=== PATIENT | male | born 1945 | race Caucasian/White ===

== ENCOUNTER → 2016-08-03 | Outpatient (CLI) | payer MEDICARE, OTHER ==
[2016-08-03 10:36] LABS: ABSOLUTE BASOPHILS # (AUTO) 0.1 10^3/uL (0.0-0.2); ABSOLUTE EOSINOPHILS # (AUTO) 0.3 10^3/uL (0.0-0.6); ABSOLUTE LYMPHOCYTES (AUTO) 0.9 10^3/uL (0.5-4.7); ABSOLUTE MONOCYTES (AUTO) 0.5 10^3/uL (0.1-1.4); ABSOLUTE NEUT (AUTO) 4.4 10^3/uL (1.7-8.2); BASOPHILS % (AUTO) 1.3 % (0-2); HEMATOCRIT 47.5 % (37.9-51.0); HEMOGLOBIN 16.1 g/dL (13.5-17.0); HGB HCT DIFFERENCE 0.8; LYMPHOCYTES % (AUTO) 14.6 % (13-45); MEAN CORPUSCULAR HEMOGLOBIN 33.5 pg (27.0-33.4); MEAN CORPUSCULAR HGB CONC 33.9 g/dL (32.0-36.0); MEAN CORPUSCULAR VOLUME 99 fl (80-97); MONOCYTES % (AUTO) 8.5 % (3-13); SEGMENTED NEUTROPHILS % (AUTO) 70.6 % (42-78); WHITE BLOOD COUNT 6.2 10^3/uL (4.0-10.5)
[2016-08-03 11:01] LABS: ALANINE AMINOTRANSFERASE 24 U/L (21-72); ALBUMIN 4.9 g/dL (3.5-5.0); ALKALINE PHOSPHATASE 59 U/L (38-126); ANION GAP 12 (5-19); ASPARTATE AMINO TRANSFERASE 37 U/L (17-59); BILIRUBIN,DIRECT 0.4 mg/dL (0.0-0.4); BILIRUBIN,TOTAL 1.2 mg/dL (0.2-1.3); BLOOD UREA NITROGEN 26 mg/dL (7-20); CALCIUM 9.5 mg/dL (8.4-10.2); CARBON DIOXIDE 26 mmol/L (22-30); CHLORIDE 103 mmol/L (98-107); CREATININE RESULT 1.03 mg/dL (0.52-1.25); Direct HDL 60 mg/dL (>40); GLUCOSE 100 mg/dL (75-110); POTASSIUM 4.8 mmol/L (3.6-5.0); SODIUM 141.4 mmol/L (137-145); TOTAL PROTEIN 7.9 g/dL (6.3-8.2); TRIGLYCERIDES 105 mg/dL (<150)
[2016-08-03 11:13] LABS: DIRECT LDL 123 mg/dL (<100)
[2016-08-03 11:20] LABS: FREE T3 3.73 pg/mL (2.77-5.27)
[2016-08-03 11:34] LABS: THYROID STIMULATING HORMONE 0.46 uIU/mL (0.47-4.68)
== END ==
LOC: OD 09:31
PROVIDERS: ATTEND Family Medicine
DX: E03.9 Hypothyroidism, unspecified (principal); E78.5 Hyperlipidemia, unspecified; Z13.1 Encounter for screening for diabetes mellitus; Z79.82 Long term (current) use of aspirin; Z79.899 Other long term (current) drug therapy
CPT/HCPCS: 36415; 80053; 80061; 84439; 84443; 84481; 85025

== ENCOUNTER → 2016-09-13 | Outpatient (CLI) | payer MEDICARE, OTHER ==
[2016-09-13 11:47] LABS: ABSOLUTE BASOPHILS # (AUTO) 0.1 10^3/uL (0.0-0.2); ABSOLUTE EOSINOPHILS # (AUTO) 0.4 10^3/uL (0.0-0.6); ABSOLUTE LYMPHOCYTES (AUTO) 1.1 10^3/uL (0.5-4.7); ABSOLUTE MONOCYTES (AUTO) 0.7 10^3/uL (0.1-1.4); ABSOLUTE NEUT (AUTO) 5.7 10^3/uL (1.7-8.2); BASOPHILS % (AUTO) 1.1 % (0-2); HEMATOCRIT 45.1 % (37.9-51.0); HEMOGLOBIN 15.7 g/dL (13.5-17.0); LYMPHOCYTES % (AUTO) 13.8 % (13-45); MEAN CORPUSCULAR HEMOGLOBIN 34.5 pg (27.0-33.4); MEAN CORPUSCULAR HGB CONC 34.7 g/dL (32.0-36.0); MEAN CORPUSCULAR VOLUME 99 fl (80-97); MONOCYTES % (AUTO) 8.7 % (3-13); RED BLOOD COUNT 4.54 10^6/uL (4.35-5.55); RED CELL DISTRIBUTION WIDTH 14.4 % (11.5-14.0); SEGMENTED NEUTROPHILS % (AUTO) 71.4 % (42-78); WHITE BLOOD COUNT 7.9 10^3/uL (4.0-10.5)
[2016-09-13 11:57] LABS: ALANINE AMINOTRANSFERASE 23 U/L (21-72); ALBUMIN 4.6 g/dL (3.5-5.0); ALKALINE PHOSPHATASE 66 U/L (38-126); ANION GAP 10 (5-19); ASPARTATE AMINO TRANSFERASE 34 U/L (17-59); BILIRUBIN,DIRECT 0.3 mg/dL (0.0-0.4); BLOOD UREA NITROGEN 19 mg/dL (7-20); CALCIUM 9.4 mg/dL (8.4-10.2); CARBON DIOXIDE 27 mmol/L (22-30); CHLORIDE 104 mmol/L (98-107); CREATININE RESULT 1.04 mg/dL (0.52-1.25); Direct HDL 39 mg/dL (>40); GLUCOSE 91 mg/dL (75-110); POTASSIUM 5.2 mmol/L (3.6-5.0); SODIUM 141.3 mmol/L (137-145); TOTAL PROTEIN 7.5 g/dL (6.3-8.2); TRIGLYCERIDES 109 mg/dL (<150)
[2016-09-13 12:08] LABS: DIRECT LDL 79 mg/dL (<100)
[2016-09-14 08:22] LABS: PROSTATE SPECIFIC ANTIGEN 1.1 ng/mL (0.0-4.0); PSA % FREE 29.1 % (.); PSA FREE 0.32 ng/mL
== END ==
LOC: OD 10:40
PROVIDERS: ATTEND Urology
DX: N52.8 Other male erectile dysfunction (principal); E29.1 Testicular hypofunction; I10 Essential (primary) hypertension; F41.1 Generalized anxiety disorder; M19.90 Unspecified osteoarthritis, unspecified site
CPT/HCPCS: 36415; 80053; 80061; 84154; 84403; 85025

== ENCOUNTER 2018-06-14 09:00 | Emergency (ER) | payer MEDICARE, OTHER ==
--- NOTE | 2018-06-14 10:05 | ER Document Report ---
ED Fall - General Chief Complaint: Fall Stated Complaint: FALL/RIB PAIN Time Seen by Provider: 06/14/18 09:48 Primary Care Provider: MARGIE TONY PA-C [Primary Care Provider] - Follow up as needed TRAVEL OUTSIDE OF THE [place] IN LAST 30 DAYS: No - HPI Notes: Patient is a 72-year-old male that presents to the emergency department for chief complaint of left-sided rib pain. Patient reports that 2 days ago he stood up from the couch and passed out landing on his left side. A family member was present and denied any head injury. Patient has a history of parkinsonian gait as well as vasovagal syncope. He has been having full syncopal episodes after standing for the last few weeks. He does have an appointment with violent cardiology this coming week to further investigate his syncopal episodes. He denies any prodrome including chest pain or shortness of breath. Patient states that he does get lightheaded but it happens very quickly and he has not had time to lower himself to the ground generally. He has been ambulating with a walker occasionally because of the syncopal episodes. Patient's only complaint today is sharp pain on the left side of his ribs that is worse with movement and breathing. He has been taking ibuprofen which gives him some relief but not a significant amount of relief. He denies fevers cough and congestion. Past Medical History: Orthostatic syncope, parkinsonian gait Past Surgical History: Reviewed in chart Social History: Denies drugs alcohol and tobacco Family History: Reviewed and noncontributory for presenting illness Allergies: Reviewed, see documented allergy list. REVIEW OF SYSTEMS: CONSTITUTIONAL : No fever No chills No diaphoresis No recent illness EENT: No vision changes No congestion No sore throat CARDIOVASCULAR: Syncope No chest pain No palpitations RESPIRATORY: No shortness of breath No cough No difficulty breathing GASTROINTESTINAL: No abdominal pain No nausea No vomiting No diarrhea GENITOURINARY: No dysuria No hematuria No difficulty urinating MUSCULOSKELETAL: No back pain No leg pain No arm pain Left rib pain SKIN: No rashes No lesions LYMPHATIC: No swollen, enlarged glands. NEUROLOGICAL: No lightheadedness No headache No weakness No paresthesias PSYCHIATRIC: No anxiety No depression PHYSICAL EXAMINATION: Vital signs reviewed, nursing noted reviewed. GENERAL: Well-appearing, well-nourished and in no acute distress. HEAD: Atraumatic, normocephalic. EYES: Eyes appear normal, extraocular movements intact, sclera anicteric, conjunctiva are normal. ENT: nares patent, oropharynx clear without exudates. Moist mucous membranes. NECK: Normal range of motion, supple without lymphadenopathy LUNGS: Tenderness to palpation of left anterior ribs 5, 6 and 7 with no flail segments or chest wall crepitus. No overlying left-sided ecchymosis. Right anterior chest wall ecchymosis. Breath sounds clear to auscultation bilaterally and equal. No wheezes rales or rhonchi. HEART: Regular rate and rhythm without murmurs, +2/4 bilateral radial pulses ABDOMEN: Soft, nontender, normoactive bowel sounds. No rebound, guarding, or rigidity. No masses appreciated. EXTREMITIES: Nontender, good range of motion, no pitting or edema. NEUROLOGICAL: No focal neurological deficits. Moves all extremities spontaneously Motor and sensory grossly intact on exam. PSYCH: Normal mood, normal affect. SKIN: Warm, Dry, normal turgor, ecchymosis over anterior right rib cage - Related data Allergies/Adverse Reactions: No Known Allergies Allergy (Verified 06/14/18 09:03) Past Medical History - Social History Smoking Status: Unknown if Ever Smoked Family History: Reviewed & Not Pertinent Patient has suicidal ideation: No Patient has homicidal ideation: No Renal/ Medical History: Denies: Hx Peritoneal Dialysis Physical Exam - Vital signs Vitals: Temp Pulse Resp BP Pulse Ox 97.8 F 78 18 155/79 H 98 06/14/18 09:09 06/14/18 09:09 06/14/18 09:09 06/14/18 09:09 06/14/18 09:09 Course - Re-evaluation Re-evalutation: 06/14/18 10:20 Vitals reviewed. Nursing notes reviewed. Patient is currently hemodynamically stable. He has not had any syncopal episodes in the last 2 days and denies ever having any associated chest pain. He does have tenderness over his left anterior rib cage and x-ray will be obtained to evaluate for underlying fracture. I did offer lab work to further evaluate his syncopal episodes however he has been documented as having significant orthostasis which is consistent with his clinical presentation today. He has an appointment with cardiology as an outpatient and him and his family have declined any further syncopal work-up in the ER today. I feel this is reasonable given their compliance with outpatient management. Patient was given 0.5 mg of [place] for further pain control. 06/14/18 12:11 Patient's x-ray shows nondisplaced left fifth rib fracture. He did tolerate the [place] well but will be given a low dose given his vasovagal syncope and parkinsonian gait. I am concerned pain medicine may cause him to fall more frequently. Patient does not wish to have further work-up of his syncope in the emergency room. He will follow with cardiology to further evaluate his syncopal episodes. He was given incentive spirometer in the emergency room. He was discharged in stable condition. Ribs w/Chest X-Ray 06/14/18 09:48 IMPRESSION: Acute nondisplaced lateral left 5th rib fracture. No pneumothorax - Vital Signs Vital signs: Temp Pulse Resp BP Pulse Ox 97.8 F 78 18 155/79 H 98 06/14/18 09:09 06/14/18 09:09 06/14/18 09:09 06/14/18 09:09 06/14/18 09:09 Discharge - Discharge Clinical Impression: Closed traumatic nondisplaced fracture of rib Condition: Stable Disposition: HOME, SELF-CARE Instructions: Rib Injuries and Fractures ([facility]) Additional Instructions: Please return to the emergency department if you have any worsening, or concern of your symptoms. Please return to the emergency department if you develop chest pain, difficulty breathing, severe abdominal pain, or ongoing vomiting. Please follow-up with your primary care physician in 2-3 days and any other recommended physicians. If prescribed, take all medications as directed. If you have any questions or concerns do not hesitate to return the emergency department for evaluation. Use your incentive spirometer to take 10 deep breaths 2-3 times daily to help prevent pneumonia use the prescribed pain medication very sparingly as it will cause low blood pressure and can cause dizziness or lightheadedness which may lead to more falling Keep your appointment with cardiology to further evaluate your drop in blood pressure and passing out Be sure to stand up very slowly to help prevent passing out, always ambulate with your walker, and lay down immediately if you begin to feel lightheaded . Prescriptions: Hydrocodone/Acetaminophen [[place] 5-325 mg Tablet] 0.5 tab PO Q6 #10 tablet Referrals: MARGIE TONY PA-C [Primary Care Provider] - Follow up in 3-5 days
[2018-06-14] MEDS ORDERED: HYDROCODONE/ACETAMINOPHEN 5-325 MG TABLET PO ONE (10:15)
--- NOTE | 2018-06-14 11:50 | RADIOLOGY REPORT (SQ) ---
EXAM DESCRIPTION: RIBS LEFT W/PA CHEST COMPLETED DATE/TIME: 06/14/2018 10:57 am REASON FOR STUDY: rib trauma COMPARISON: None. TECHNIQUE: Frontal view of the chest and additional views of the left ribs acquired. NUMBER OF VIEWS: Five view. LIMITATIONS: None. FINDINGS: FRONTAL CXR: No pneumothorax. No pleural effusion. No atelectasis or infiltrates. RIBS: Nondisplaced acute lateral 5th rib fracture, better visualized on the oblique views. OTHER: No other significant finding. IMPRESSION: Acute nondisplaced lateral left 5th rib fracture. No pneumothorax COMMENT: SITE OF TRAUMA/COMPLAINT MARKED/STAMP COMPLETED: YES. TECHNICAL DOCUMENTATION: JOB ID: [id number] [employer]- All Rights Reserved Reading location - IP/workstation name: [email or web address]
[2018-06-14 12:35] VITALS: BP 145/75
== END 2018-06-14 12:35 | disposition home or self-care (01) ==
LOC: ER 09:00
DX: S22.32XA Fracture of one rib, left side, initial encounter for closed fracture (principal); W18.39XA Other fall on same level, initial encounter; Y92.009 Unspecified place in unspecified non-institutional (private) residence as the place of occurrence of the external cause
CPT/HCPCS: 99283; 71101; A9270

== ENCOUNTER 2018-09-19 12:38 | Emergency (ER) | payer MEDICARE, OTHER ==
--- NOTE | 2018-09-19 12:59 | ER Document Report ---
ED Medical Screen (RME) - General Chief Complaint: Near Syncope Stated Complaint: SYNCOPE Time Seen by Provider: 09/19/18 12:54 Primary Care Provider: MARGIE TONY PA-C [Primary Care Provider] - Follow up as needed Mode of Arrival: Medic Information source: Patient Notes: Pt c/o near syncopal episode while golfing today. Denies any CP or shortness of breath. Denies any recent illness, states he was feeling fine this am before symptoms started. Patient seems sluggish and is unable to recall the name of his doctor. He also has a subconjunctival hemorrhage to the left eye. He states this is not normal for him. Patient upgraded to STEF 2. Charge nurse made aware. I have greeted and performed a rapid initial assessment of this patient. A comprehensive ED assessment and evaluation of the patient, analysis of test results and completion of the medical decision making process will be conducted by additional ED providers. I have specifically instructed the patient or family members with the patient to immediately return to any nursing staff should anything change in the patient's condition or with their chief complaint. This medical record was dictated with voice recognizing software. There may be grammatical, syntax errors that are unintended. TRAVEL OUTSIDE OF THE [place] IN LAST 30 DAYS: No - Related Data Allergies/Adverse Reactions: No Known Allergies Allergy (Verified 06/14/18 09:03) Past Medical History Renal/ Medical History: Denies: Hx Peritoneal Dialysis Physical Exam - Vital signs Vitals: Resp BP Pulse Ox 20 154/80 H 95 09/19/18 12:43 09/19/18 12:43 09/19/18 12:43 Course - Vital Signs Vital signs: Temp Pulse Resp BP Pulse Ox 97.9 F 73 21 H 156/91 H 97 09/19/18 12:46 09/19/18 12:46 09/19/18 13:01 09/19/18 13:01 09/19/18 13:01 - Laboratory Result Diagrams: 09/19/18 12:06 09/19/18 12:06 Doctor's Discharge - Discharge Referrals: MARGIE TONY PA-C [Primary Care Provider] - Follow up as needed
[2018-09-19 13:07] LABS: ABSOLUTE BASOPHILS # (AUTO) 0.1 10^3/uL (0.0-0.2); ABSOLUTE EOSINOPHILS # (AUTO) 0.2 10^3/uL (0.0-0.6); ABSOLUTE LYMPHOCYTES (AUTO) 0.9 10^3/uL (0.5-4.7); ABSOLUTE MONOCYTES (AUTO) 0.8 10^3/uL (0.1-1.4); ABSOLUTE NEUT (AUTO) 7.3 10^3/uL (1.7-8.2); EOSINOPHILS % (AUTO) 2.2 % (0-6); HEMOGLOBIN 15.8 g/dL (13.5-17.0); LYMPHOCYTES % (AUTO) 9.9 % (13-45); MEAN CORPUSCULAR HEMOGLOBIN 34.5 pg (27.0-33.4); MEAN CORPUSCULAR HGB CONC 34.2 g/dL (32.0-36.0); MEAN CORPUSCULAR VOLUME 101 fl (80-97); MONOCYTES % (AUTO) 8.7 % (3-13); PLATELET COUNT 144 10^3/uL (150-450); RED BLOOD COUNT 4.57 10^6/uL (4.35-5.55); RED CELL DISTRIBUTION WIDTH 14.9 % (11.5-14.0); SEGMENTED NEUTROPHILS % (AUTO) 78.2 % (42-78); TOTAL CELLS COUNTED % (AUTO) 100 %; WHITE BLOOD COUNT 9.4 10^3/uL (4.0-10.5)
[2018-09-19 13:20] LABS: INTERNATIONAL RATION (INR) 1.08
[2018-09-19 13:21] LABS: PARTIAL THROMBOPLASTIN TIME 27.7 SEC (23.5-35.8)
--- NOTE | 2018-09-19 13:23 | RADIOLOGY REPORT (SQ) ---
EXAM DESCRIPTION: CT HEAD WITHOUT COMPLETED DATE/TIME: 09/19/2018 1:12 pm REASON FOR STUDY: sluggish, slow to respond COMPARISON: None. TECHNIQUE: Axial images acquired through the brain without intravenous contrast. Images reviewed wi th bone, brain and subdural windows. Additional sagittal and coronal reconstructions were generated. Images stored on PACS. All CT scanners at this facility use dose modulation, iterative reconstruction, and/or weight based d osing when appropriate to reduce radiation dose to as low as reasonably achievable (ALARA). [facility]: Dose Right [facility]: CareDose [facility]: Dose Right [facility]: Teradose 4D [facility]: Smart Vedantu RADIATION DOSE: CT Rad equipment meets quality standard of care and radiation dose reduction techniq ues were employed. CTDIvol: 53.2 mGy. DLP: 1044 mGy-cm. mGy. LIMITATIONS: None. FINDINGS: VENTRICLES: Normal size and contour. CEREBRUM: No masses. No hemorrhage. No midline shift. No evidence for acute infarction. Normal gra y/white matter differentiation. No areas of low density in the white matter. CEREBELLUM: No masses. No hemorrhage. No alteration of density. No evidence for acute infarction. EXTRAAXIAL SPACES: No fluid collections. No masses. ORBITS AND GLOBE: No intra- or extraconal masses. Normal contour of globe without masses. CALVARIUM: No fracture. PARANASAL SINUSES: No fluid or mucosal thickening. SOFT TISSUES: No mass or hematoma. OTHER: No other significant finding. IMPRESSION: NORMAL BRAIN CT WITHOUT CONTRAST. EVIDENCE OF ACUTE STROKE: NO. COMMENT: Quality ID # [id number]: Final reports with documentation of one or more dose reduction techniques (e.g., Automated exposure control, adjustment of the mA and/or kV according to patient size, use of iterative reconstruction technique) TECHNICAL DOCUMENTATION: JOB ID: [id number] [employer] All Rights Reserved Reading location - IP/workstation name: [email or web address]
[2018-09-19 13:30] LABS: ALBUMIN 4.2 g/dL (3.5-5.0); ALKALINE PHOSPHATASE 75 U/L (38-126); ANION GAP 9 (5-19); ASPARTATE AMINO TRANSFERASE 43 U/L (17-59); BILIRUBIN,DIRECT 0.3 mg/dL (0.0-0.4); BILIRUBIN,TOTAL 1.2 mg/dL (0.2-1.3); BLOOD UREA NITROGEN 25 mg/dL (7-20); CALCIUM 9.5 mg/dL (8.4-10.2); CARBON DIOXIDE 29 mmol/L (22-30); CHLORIDE 100 mmol/L (98-107); CREATINE KINASE 59 U/L (55-170); GLUCOSE 98 mg/dL (75-110); POTASSIUM 4.5 mmol/L (3.6-5.0); TOTAL PROTEIN 6.7 g/dL (6.3-8.2)
--- NOTE | 2018-09-19 13:33 | RADIOLOGY REPORT (SQ) ---
EXAM DESCRIPTION: CHEST SINGLE VIEW COMPLETED DATE/TIME: 09/19/2018 1:21 pm REASON FOR STUDY: sluggish COMPARISON: None. EXAM PARAMETERS: NUMBER OF VIEWS: One view. TECHNIQUE: Single frontal radiographic view of the chest acquired. RADIATION DOSE: NA LIMITATIONS: None. FINDINGS: LUNGS AND PLEURA: No opacities, masses or pneumothorax. No pleural effusion. MEDIASTINUM AND HILAR STRUCTURES: No masses. Contour normal. HEART AND VASCULAR STRUCTURES: Heart normal in size. Normal vasculature. BONES: No acute findings. HARDWARE: None in the chest. OTHER: No other significant finding. IMPRESSION: NO ACUTE RADIOGRAPHIC FINDING IN THE CHEST. TECHNICAL DOCUMENTATION: JOB ID: [id number] [employer]- All Rights Reserved Reading location - IP/workstation name: [email or web address]
[2018-09-19 13:42] LABS: CREATINE KINASE MB 2.15 ng/mL (<4.55); TROPONIN I 0.013 ng/mL
[2018-09-19 14:05] LABS: APPEARANCE,URINE CLEAR; BILIRUBIN,URINE NEGATIVE (NEGATIVE); COLOR,URINE YELLOW; GLUCOSE, URINE NEGATIVE (NEGATIVE); KETONES,URINE NEGATIVE (NEGATIVE); LEUKOCYTE ESTERASE,URINE NEGATIVE (NEGATIVE); NITRITE,URINE NEGATIVE (NEGATIVE); PROTEIN,URINE NEGATIVE (NEGATIVE); URINE SPECIFIC GRAVITY 1.006; UROBILINOGEN,URINE NEGATIVE mg/dL (<2.0)
[2018-09-19] MEDS ORDERED: NORMAL SALINE 1000 ML 1,000 ML IV ONE (14:11)
--- NOTE | 2018-09-19 16:24 | ER Document Report ---
ED Dizziness/Weakness - General Chief Complaint: Near Syncope Stated Complaint: SYNCOPE Time Seen by Provider: 09/19/18 12:54 Primary Care Provider: MARGIE TONY PA-C [Primary Care Provider] - Follow up as needed Mode of Arrival: Medic Notes: Patient is a 73-year-old male who comes in after 2 episodes of syncope [place] the [place]. Patient has a history of Parkinson's disease. He has been seen by cardiology for syncope in the past. Patient has fallen multiple times per daughter due to lightheadedness. Patient had a recent cardiac work-up with no acute findings. Patient has no complaints at this time wants to go home. Denies any cough, fever, congestion, vomiting, diarrhea, dysuria, headache, or other symptoms. No confusion per patient or daughter. No weakness or decreased sensation. Blood pressure for EMS prior to arrival 80/40. Fluids initiated in the field. TRAVEL OUTSIDE OF THE [place] IN LAST 30 DAYS: No - HPI Patient complains to provider of: Syncope Onset: Just prior to arrival - Related Data Allergies/Adverse Reactions: No Known Allergies Allergy (Verified 06/14/18 09:03) Past Medical History - General Information source: Patient - Social History Smoking Status: Never Smoker Family History: Reviewed & Not Pertinent Patient has suicidal ideation: No Patient has homicidal ideation: No - Medical History Medical History: Other - Parkison's, high cholesterol Renal/ Medical History: Denies: Hx Peritoneal Dialysis Review of Systems - Review of Systems Constitutional: No symptoms reported EENT: No symptoms reported Cardiovascular: Syncope, Lightheaded Respiratory: No symptoms reported Gastrointestinal: No symptoms reported Genitourinary: No symptoms reported Male Genitourinary: No symptoms reported Musculoskeletal: No symptoms reported Skin: No symptoms reported Hematologic/Lymphatic: No symptoms reported Neurological/Psychological: No symptoms reported Physical Exam - Vital signs Vitals: Resp BP Pulse Ox 20 154/80 H 95 09/19/18 12:43 09/19/18 12:43 09/19/18 12:43 Interpretation: Normal - General General appearance: Appears well, Alert - HEENT Head: Normocephalic, Atraumatic Eyes: Normal Pupils: PERRL Mucous membranes: Dry - Respiratory Respiratory status: No respiratory distress Chest status: Nontender Breath sounds: Normal Chest palpation: Normal - Cardiovascular Rhythm: Regular Heart sounds: Normal auscultation Murmur: No - Abdominal Inspection: Normal Distension: No distension Bowel sounds: Normal Tenderness: Nontender Organomegaly: No organomegaly - Back Back: Normal, Nontender - Extremities General upper extremity: Normal inspection, Nontender, Normal color, Normal ROM, Normal temperature General lower extremity: Normal inspection, Nontender, Normal color, Normal ROM, Normal temperature, Normal weight bearing. No: Al's sign - Neurological Neuro grossly intact: Yes Cognition: Normal Orientation: AAOx4 Hernshaw Coma Scale Eye Opening: Spontaneous Hernshaw Coma Scale Verbal: Oriented Silvestre Coma Scale Motor: Obeys Commands Silvestre Coma Scale Total: 15 Speech: Normal Cranial nerves: Normal Cerebellar coordination: Normal Motor strength normal: LUE, RUE, LLE, RLE Additional motor exam normals: Equal closet organizer Sensory: Normal - Psychological Associated symptoms: Normal affect, Normal mood - Skin Skin Temperature: Warm Skin Moisture: Dry Skin Color: Normal Course - Re-evaluation Re-evalutation: 09/19/18 16:[address] Gonzalez from cardiology. Will initiate midodrine. Can follow-up in the office. Patient is a 73-year-old male with a history of Parkinson's disease who comes in today with a blood pressure of 80/40. Patient is not on any antihypertensives. Denies any recent illnesses. Has an elevated lactic. Patient feels well wants to go home. He is not orthostatic. He is ambulated to the bathroom multiple times without difficulty. He has no symptoms at this time. He is not confused. He has no symptoms for stroke. Head CT within normal limits. X-ray within normal limits. Urine within normal limits. Blood work benign except for elevated lactic which is likely from low blood pressure and probable dehydration. Patient's autonomic dysfunction and treatment for Parkinson's is likely to blame. I discussed his care with his watch repair technician. Patient has no acute EKG changes. Troponin is negative. He has had a recent normal cardiac work-up including echo. We will start Midrin at 2.5 mg 3 times daily. Patient is to follow-up in the office. He is agreeable to this plan. Discussed at length with daughter. Stable for discharge. Return immediately if any worsening or concerning symptoms. Of note, patient has remained afebrile in the ED. 09/19/18 17:33 Repeat lactic is 1. Stable for discharge. Return if any further concerns. - Vital Signs Vital signs: Temp Pulse Resp BP Pulse Ox 97.9 F 73 12 176/97 H 97 09/19/18 12:46 09/19/18 12:46 09/19/18 16:01 09/19/18 16:01 09/19/18 16:01 - Laboratory Result Diagrams: 09/19/18 12:06 09/19/18 12:06 Laboratory results interpreted by me: 09/19/18 09/19/18 09/19/18 12:06 12:06 13:01 MCV 101 H MCH 34.5 H RDW 14.9 H Plt Count 144 L Seg Neutrophils % 78.2 H Lymphocytes % 9.9 L BUN 25 H Lactic Acid 6.3 H - Diagnostic Test Radiology reviewed: Reports reviewed Critical Care Note - Critical Care Note Total time excluding time spent on procedures (mins): 35 - Evaluation and management of syncope, low blood pressure, consultation with cardiology, discussion with patient and family Discharge - Discharge Clinical Impression: Hypotension Qualifiers: Hypotension type: unspecified hypotension type Qualified Code(s): I95.9 - Hypotension, unspecified Syncope Qualifiers: Syncope type: unspecified Qualified Code(s): R55 - Syncope and collapse Condition: Stable Disposition: HOME, SELF-CARE Instructions: Syncopal Episode ([facility]) Additional Instructions: Please follow-up with your watch repair technician as an outpatient. Please start the medication as prescribed and keep track of your blood pressure. Please stand up slowly. Prescriptions: Midodrine HCl 2.5 mg PO TID #90 tablet Referrals: MARGIE TONY PA-C [Primary Care Provider] - Follow up in 3-5 days ANNALISE GONZALEZ MD [ACTIVE STAFF] - Follow up as needed
[2018-09-19 17:34] VITALS: BP 154/83
--- NOTE | 2018-09-21 10:27 | EKG REPORT ---
SEVERITY:- OTHERWISE NORMAL ECG - SINUS RHYTHM MINIMAL ST ELEVATION, ANTERIOR LEADS : Confirmed by: Kimberly Freedman 21-Sep-2018 10:26:31
== END 2018-09-19 17:41 | disposition home or self-care (01) ==
LOC: ER 12:38
DX: I95.9 Hypotension, unspecified (principal); R55 Syncope and collapse; R42 Dizziness and giddiness; G20 Parkinson's disease
CPT/HCPCS: 93005; 99291; 96360; 36415; 82553; 82962; 82550; 83605 ×2; 85025; 85610; 85730; 80053; 81001; 84484; 71045; 70450; 93010; J7030

== ENCOUNTER 2018-10-11 11:54 | Emergency (ER) | payer MEDICARE, OTHER ==
--- NOTE | 2018-10-11 12:03 | ER Document Report ---
ED Medical Screen (RME) - General Chief Complaint: Arm Pain Stated Complaint: ARM INJURY Time Seen by Provider: 10/11/18 11:59 Primary Care Provider: MARGIE TONY PA-C [Primary Care Provider] - Follow up as needed Mode of Arrival: Ambulatory Information source: Relative Notes: 73-year-old male presented to ED for complaint of pain and swelling to the left elbow and forearm. states that on Sunday he told her he had fallen which he thinks he felt Sunday. She states he does have a big bruise to his left hip but he is walking steady and is not complaining of that and did not even know that there was a bruise after she saw. She states he has early dementia and is not a very good historian. Patient is walking with a even steady gait there is swelling from the elbow down to his wrist it is tender to palpation. X-rays have been ordered at this time and I did have the remove the ring from his left hand. I have greeted and performed a rapid initial assessment of this patient. A comprehensive ED assessment and evaluation of the patient, analysis of test results and completion of medical decision making process will be conducted by an additional ED providers. TRAVEL OUTSIDE OF THE [place] IN LAST 30 DAYS: No - Related Data Allergies/Adverse Reactions: No Known Allergies Allergy (Verified 06/14/18 09:03) Past Medical History Renal/ Medical History: Denies: Hx Peritoneal Dialysis Doctor's Discharge - Discharge Referrals: MARGIE TONY PA-C [Primary Care Provider] - Follow up as needed
--- NOTE | 2018-10-11 12:32 | RADIOLOGY REPORT (SQ) ---
EXAM DESCRIPTION: FOREARM LEFT COMPLETED DATE/TIME: 10/11/2018 12:24 pm REASON FOR STUDY: pain swelling fall wed COMPARISON: None. NUMBER OF VIEWS: Two views. TECHNIQUE: Two radiographic images acquired of the left forearm, including elbow and wrist in at j[facility] one projection. LIMITATIONS: None. FINDINGS: MINERALIZATION: Normal. BONES: No acute fracture. No worrisome bone lesions. SOFT TISSUES: There is soft tissue edema. OTHER: No other significant finding. IMPRESSION: Soft tissue edema. No foreign body. No underlying bony abnormality. TECHNICAL DOCUMENTATION: JOB ID: [id number] [employer]- All Rights Reserved Reading location - IP/workstation name: [email or web address]
--- NOTE | 2018-10-11 12:34 | RADIOLOGY REPORT (SQ) ---
EXAM DESCRIPTION: ELBOW LEFT OVER 2 VIEWS COMPLETED DATE/TIME: 10/11/2018 12:24 pm REASON FOR STUDY: pain swelling fall wed COMPARISON: None. NUMBER OF VIEWS: Four views. TECHNIQUE: AP, lateral, and both oblique radiographic images acquired of the left elbow. LIMITATIONS: None. FINDINGS: MINERALIZATION: Normal. BONES: Chip fracture off the medial epicondyle. JOINT: Small joint effusion. SOFT TISSUES: Diffuse soft tissue edema. OTHER: No other significant finding. IMPRESSION: Diffuse soft tissue edema. Chip fracture off the medial epicondyle. TECHNICAL DOCUMENTATION: JOB ID: [id number] [employer]- All Rights Reserved Reading location - IP/workstation name: [email or web address]
[2018-10-11] MEDS ORDERED: VANCOMYCIN HCL INJ 1000 MG VIAL IV ONE (15:25)
[2018-10-11] MEDS ORDERED: TETANUS/DIPHTHERIA TOX-ADULT 0.5 ML SYR (>=7YO) IM ONE (15:27)
--- NOTE | 2018-10-11 16:03 | RADIOLOGY REPORT (SQ) ---
EXAM DESCRIPTION: HIP BILATERAL COMPLETED DATE/TIME: 10/11/2018 3:49 pm REASON FOR STUDY: fx COMPARISON: None. NUMBER OF VIEWS: Two views. TECHNIQUE: AP pelvis and additional frog-leg view of the right and left hip. LIMITATIONS: None. FINDINGS: MINERALIZATION: Normal. PRIMARY HIP: No fracture or dislocation. No worrisome bone lesions. OPPOSITE HIP: No fracture or dislocation. No worrisome bone lesions. PUBIS AND ISCHIUM: No fracture. PELVIS: No fracture. SACRUM: No fracture or dislocation. No worrisome bone lesions. LOWER LUMBAR SPINE: No fracture or dislocation. No worrisome bone lesions. No significant disc disea se. SOFT TISSUES: No findings. OTHER: No other significant finding. IMPRESSION: NEGATIVE STUDY OF THE RIGHT AND LEFT HIPS AND PELVIS. NO RADIOGRAPHIC EVIDENCE OF ACUTE INJURY. TECHNICAL DOCUMENTATION: JOB ID: [id number] [employer]- All Rights Reserved Reading location - IP/workstation name: [email or web address]
--- NOTE | 2018-10-11 16:10 | ER Document Report ---
ED Extremity Problem, Upper - General Chief Complaint: Arm Pain Stated Complaint: ARM INJURY Time Seen by Provider: 10/11/18 11:59 Primary Care Provider: MARGIE TONY PA-C [Primary Care Provider] - Follow up as needed Mode of Arrival: Ambulatory Cannot obtain history due to: Dementia Notes: History from who did not see the fall and only noticed this today TRAVEL OUTSIDE OF THE [place] IN LAST 30 DAYS: No - HPI Patient complains to provider of: Pain, Swelling, Left, Arm Onset: Yesterday Recent injury: Possibly Quality of pain: Achy, Burning Severity of pain: Moderate Associated symptoms: denies: None, Back pain, Chest pain/discomfort, Chills, Dizziness, Fainted, Fever, Hurts to breathe, Jaw pain, Nausea, Neck pain, Numbness, Seizure, Short of breath, Sweating, Tingling, Vomiting, Other - Related Data Allergies/Adverse Reactions: No Known Allergies Allergy (Verified 06/14/18 09:03) Past Medical History - General Information source: Relative - Social History Smoking Status: Never Smoker Frequency of alcohol use: None Drug Abuse: None Family History: Reviewed & Not Pertinent Patient has suicidal ideation: No Patient has homicidal ideation: No - Past Medical History Cardiac Medical History: Denies: Hx Hypertension - Hypotension Renal/ Medical History: Denies: Hx Peritoneal Dialysis Psychiatric Medical History: Reports: Hx Dementia Review of Systems - Review of Systems Constitutional: Chills. denies: No symptoms reported, See HPI, Diaphoresis, Fever, Malaise, Weakness, Other, Weight gain, Weight loss, Recent illness EENT: No symptoms reported Cardiovascular: No symptoms reported Respiratory: No symptoms reported Gastrointestinal: No symptoms reported Genitourinary: No symptoms reported Skin: See HPI, Change in color Neurological/Psychological: No symptoms reported -: Yes All other systems reviewed and negative Physical Exam - Vital signs Vitals: Temp Pulse Resp BP Pulse Ox 98.0 F 70 18 146/74 H 95 10/11/18 11:59 10/11/18 11:59 10/11/18 11:59 10/11/18 11:59 10/11/18 11:59 Notes: PHYSICAL EXAMINATION: GENERAL: Well-appearing, well-nourished and in no acute distress. HEAD: Atraumatic, normocephalic. EYES: Pupils equal round and reactive to light, extraocular movements intact, sclera anicteric, conjunctiva are normal. ENT: nares patent, oropharynx clear without exudates. Moist mucous membranes. NECK: Normal range of motion, supple without lymphadenopathy LUNGS: Breath sounds clear to auscultation bilaterally and equal. No wheezes rales or rhonchi. HEART: Regular rate and rhythm without murmurs ABDOMEN: Soft, nontender, normoactive bowel sounds. No guarding, no rebound. No masses appreciated. EXTREMITIES: L forearm with erythema and lymphangitis with pain to palpation over l elbow but full rom. Palpation also over bilateral hips. Bruise on the right hip NEUROLOGICAL: No focal neurological deficits. Moves all extremities spontaneously and on command. Alert and oriented x2 [address] and his name does not know the time PSYCH: Normal mood, normal affect. SKIN: Warm, Dry, normal turgor, no rashes or lesions noted. Course - Vital Signs Vital signs: Temp Pulse Resp BP Pulse Ox 97.7 F 70 18 146/74 H 95 10/11/18 15:00 10/11/18 11:59 10/11/18 11:59 10/11/18 11:59 10/11/18 11:59 - Laboratory Result Diagrams: 10/11/18 16:40 10/11/18 16:40 Laboratory results interpreted by me: 10/11/18 10/11/18 16:40 16:40 MCV 101 H MCH 34.4 H RDW 14.7 H Plt Count 135 L Lymph % (Auto) 10.0 L Carbon Dioxide 31 H BUN 22 H Glucose 152 H - Diagnostic Test Radiology reviewed: Pending, Image reviewed - Transfer of Care Notes: 10/11/18 18:07 Note patient's elbow x-ray did show a chip fracture off the medial epicondyle of the humerus therefore was put in a long-arm posterior splint Ortho-Glass with a sling to follow-up with orthopedics for that I will ask him also to follow-up with his doctor tomorrow or if not to follow-up here for recheck in the morning due to the left arm cellulitis. He will be sent home prescription for Bactrim and Keflex and also prescription for some hydrocodone for the fracture. Discharge - Discharge Clinical Impression: Left arm cellulitis, Fracture of left humerus, medial epicondyle Condition: Good Disposition: HOME, SELF-CARE Instructions: Cellulitis ([facility]), Supracondylar Fracture of the Elbow ([facility]) Additional Instructions: Patient and his are instructed to return tomorrow for recheck of the cellulitis or with the regular doctor and to follow-up with orthopedics for the possible the of a cast for the medial condylar chip fracture. And return sooner if worse patient will be discharged with a prescription for Keflex and Bactrim Prescriptions: Sulfamethoxazole/Trimethoprim [Bactrim Ds Tablet] 1 each PO BID #20 tablet Cephalexin Monohydrate [Keflex 500 mg Capsule] 500 mg PO BID #20 capsule Hydrocodone/Acetaminophen [[place] 5-325 mg Tabs (6 Tab/ER Disp)] 0 tab PO Q6 PRN #6 dspk PRN Reason: Pain Scale Of 4 Referrals: MARGIE TONY PA-C [Primary Care Provider] - Follow up as needed
--- NOTE | 2018-10-11 16:18 | RADIOLOGY REPORT (SQ) ---
EXAM DESCRIPTION: CT HEAD WITHOUT COMPLETED DATE/TIME: 10/11/2018 4:02 pm REASON FOR STUDY: head injury COMPARISON: 09/19/2018 TECHNIQUE: Axial images acquired through the brain without intravenous contrast. Images reviewed wi th bone, brain and subdural windows. Additional sagittal and coronal reconstructions were generated. Images stored on PACS. All CT scanners at this facility use dose modulation, iterative reconstruction, and/or weight based d osing when appropriate to reduce radiation dose to as low as reasonably achievable (ALARA). [facility]: Dose Right [facility]: CareDose [facility]: Dose Right [facility]: Teradose 4D [facility]: [employer] RADIATION DOSE: CT Rad equipment meets quality standard of care and radiation dose reduction techniq ues were employed. CTDIvol: 53.2 mGy. DLP: 1017 mGy-cm. mGy. LIMITATIONS: None. FINDINGS: VENTRICLES: Normal size and contour. CEREBRUM: No masses. No hemorrhage. No midline shift. No evidence for acute infarction. Normal gra y/white matter differentiation. No areas of low density in the white matter. CEREBELLUM: No masses. No hemorrhage. No alteration of density. No evidence for acute infarction. EXTRAAXIAL SPACES: No fluid collections. No masses. ORBITS AND GLOBE: No intra- or extraconal masses. Normal contour of globe without masses. CALVARIUM: No fracture. PARANASAL SINUSES: No fluid or mucosal thickening. SOFT TISSUES: No mass or hematoma. OTHER: No other significant finding. IMPRESSION: NORMAL BRAIN CT WITHOUT CONTRAST. EVIDENCE OF ACUTE STROKE: NO. COMMENT: Quality ID # [id number]: Final reports with documentation of one or more dose reduction techniques (e.g., Automated exposure control, adjustment of the mA and/or kV according to patient size, use of iterative reconstruction technique) TECHNICAL DOCUMENTATION: JOB ID: [id number] [email or web address]- All Rights Reserved Reading location - IP/workstation name: [email or web address]
[2018-10-11 17:11] LABS: ABSOLUTE BASOPHILS # (AUTO) 0.1 10^3/uL (0.0-0.2); ABSOLUTE EOSINOPHILS # (AUTO) 0.2 10^3/uL (0.0-0.6); ABSOLUTE MONOCYTES (AUTO) 0.9 10^3/uL (0.1-1.4); ABSOLUTE NEUT (AUTO) 7.6 10^3/uL (1.7-8.2); BASOPHILS % (AUTO) 0.7 % (0-2); EOSINOPHILS % (AUTO) 2.2 % (0-6); HEMATOCRIT 43.9 % (37.9-51.0); MEAN CORPUSCULAR HEMOGLOBIN 34.4 pg (27.0-33.4); MEAN CORPUSCULAR HGB CONC 34.2 g/dL (32.0-36.0); MEAN CORPUSCULAR VOLUME 101 fl (80-97); MONOCYTES % (AUTO) 9.6 % (3-13); PLATELET COUNT 135 10^3/uL (150-450); RED BLOOD COUNT 4.36 10^6/uL (4.35-5.55); RED CELL DISTRIBUTION WIDTH 14.7 % (11.5-14.0); SEGMENTED NEUTROPHILS % (AUTO) 77.5 % (42-78); TOTAL CELLS COUNTED % (AUTO) 100 %; WHITE BLOOD COUNT 9.8 10^3/uL (4.0-10.5)
[2018-10-11 17:28] LABS: ALBUMIN 4.3 g/dL (3.5-5.0); ALKALINE PHOSPHATASE 106 U/L (38-126); ANION GAP 8 (5-19); ASPARTATE AMINO TRANSFERASE 29 U/L (17-59); BILIRUBIN,DIRECT 0.3 mg/dL (0.0-0.4); BILIRUBIN,TOTAL 1.3 mg/dL (0.2-1.3); BLOOD UREA NITROGEN 22 mg/dL (7-20); CALCIUM 9.5 mg/dL (8.4-10.2); CARBON DIOXIDE 31 mmol/L (22-30); CHLORIDE 101 mmol/L (98-107); GLUCOSE 152 mg/dL (75-110); POTASSIUM 4.5 mmol/L (3.6-5.0)
[2018-10-11 20:33] VITALS: BP 125/72
== END 2018-10-11 20:34 | disposition home or self-care (01) ==
LOC: ER 11:54
DX: S42.462A Displaced fracture of medial condyle of left humerus, initial encounter for closed fracture (principal); L03.114 Cellulitis of left upper limb; W19.XXXA Unspecified fall, initial encounter; F03.90 Unspecified dementia, unspecified severity, without behavioral disturbance, psychotic disturbance, mood disturbance, and anxiety; R68.83 Chills (without fever); Z23 Encounter for immunization
CPT/HCPCS: 99284; 90471; 96374; 36415; 87040; 85025; 80053; 83605; 73080; 73090; 73522; 70450; 90714; 29105; J3370

== ENCOUNTER → 2018-10-14 | Outpatient (CLI) | payer MEDICARE, OTHER ==
--- NOTE | 2018-10-15 09:08 | XCELERA REPORT ---
[address] [address] Upper Extremity Venous Evaluation Name: LEX KIRKLAND Age: 73 yrs Gender: Male : 1945 Patient Status: Outpatient Patient Location: Study Date: 10/14/2018 05:11 PM Procedure: Unilateral duplex scan of the left upper extremity veins was performed, including responses to compression and other maneuvers. Reason For Study: LUE PAIN Ordering Physician: DEVAN FARLEY Performed By: Sayda García Left Sided Venous Evaluation Normal vessel filling wall to wall, compression and augmentation as well as Colour flow down to the forearm veins. Interpretation Summary Normal compression, patency, spontaneous and phasic flow of the left upper extremity veins. : DEVAN FARLEY > Matt Toth
== END ==
LOC: SP 16:03
PROVIDERS: ATTEND Orthopaedic Surgery
DX: M79.602 Pain in left arm (principal)
CPT/HCPCS: 93971

== ENCOUNTER 2018-10-26 10:38 | Emergency (ER) | payer MEDICARE, OTHER ==
--- NOTE | 2018-10-26 11:14 | ER Document Report ---
ED Medical Screen (RME) - General Chief Complaint: Fall Stated Complaint: FALL/ARM PAIN Time Seen by Provider: 10/26/18 11:07 Primary Care Provider: DEVAN FARLEY DO [Primary Care Provider] - Follow up as needed Information source: Relative Notes: 73-year-old male presents emergency department with history of dementia. Reports recent fall 2 weeks ago with a fractured humerus and infection in the elbow. Has been on antibiotics and being treated by Dr. Farley. reports he fell yesterday hitting his head. Now his left elbow is warm swollen. I have greeted and performed a rapid initial assessment of this patient. A comprehensive ED assessment and evaluation of the patient, analysis of test results and completion of the medical decision making process will be conducted by additional ED providers. Dictation of this chart was performed using voice recognition software; therefore, there may be some unintended grammatical errors. TRAVEL OUTSIDE OF THE [place] IN LAST 30 DAYS: No - Related Data Allergies/Adverse Reactions: No Known Allergies Allergy (Verified 06/14/18 09:03) Past Medical History - Social History Chew tobacco use (# tins/day): No Frequency of alcohol use: None Drug Abuse: None - Past Medical History Cardiac Medical History: Denies: Hx Hypertension - Hypotension Renal/ Medical History: Denies: Hx Peritoneal Dialysis Psychiatric Medical History: Reports: Hx Dementia Physical Exam - Vital signs Vitals: Temp Pulse Resp BP Pulse Ox 97.7 F 81 16 124/61 100 10/26/18 10:45 10/26/18 10:45 10/26/18 10:45 10/26/18 10:45 10/26/18 10:45 Course - Vital Signs Vital signs: Temp Pulse Resp BP Pulse Ox 97.7 F 81 16 124/61 100 10/26/18 10:45 10/26/18 10:45 10/26/18 10:45 10/26/18 10:45 10/26/18 10:45 Doctor's Discharge - Discharge Referrals: DEVAN FARLEY DO [Primary Care Provider] - Follow up as needed
--- NOTE | 2018-10-26 11:21 | ER Document Report ---
ED General - General Chief Complaint: Fall Stated Complaint: FALL/ARM PAIN Time Seen by Provider: 10/26/18 11:07 Primary Care Provider: DAVID ADLER MD [COMMUNITY BASED STAFF] - Follow up as needed DEVAN AUGUST DO [ACTIVE STAFF] - Follow up as needed Mode of Arrival: Ambulatory Information source: Patient, Relative TRAVEL OUTSIDE OF THE [place] IN LAST 30 DAYS: No - HPI Notes: 73-year-old male presents to the ED with his daughter for evaluation after falling yesterday. Fall was unwitnessed, patient reported that he did strike hi s head. Is not on any blood thinners. Patient does have a history of dementia. Patient was just evaluated by Dr. ott, customer retention specialist, for bursitis in which pt did have the bursa drained approximately 6 days ago. Patient just started on oral antibiotics, ciprofloxacin, for left olecranon cellulitis. Patient and both deny any change in level consciousness or neuro changes. Denies fevers, chills, chest pain,palpitations, shortness of breath, dyspnea, nausea, vomiting, diarrhea, abdominal pain, hematuria,blurred vision, double vision, loss of vision, speech changes, LH, dizziness, syncope, headaches, wheezing, ST, URI, neck pain, weakness, bowel or bladder dysfunction, saddle anesthesia, numbness or tingling in bilateral upper or lower extremities equally, muscle paralysis, weakness in bilateral upper or lower extremities equally or rash. - Related Data Allergies/Adverse Reactions: No Known Allergies Allergy (Verified 06/14/18 09:03) Past Medical History - General Information source: Patient, Relative - Social History Smoking Status: Never Smoker Chew tobacco use (# tins/day): No Frequency of alcohol use: None Drug Abuse: None Family History: Reviewed & Not Pertinent Patient has suicidal ideation: No Patient has homicidal ideation: No - Past Medical History Cardiac Medical History: Denies: Hx Hypertension - Hypotension Renal/ Medical History: Denies: Hx Peritoneal Dialysis Psychiatric Medical History: Reports: Hx Dementia Review of Systems - Review of Systems Constitutional: No symptoms reported EENT: No symptoms reported Cardiovascular: No symptoms reported Respiratory: No symptoms reported Gastrointestinal: No symptoms reported Genitourinary: No symptoms reported Male Genitourinary: No symptoms reported Musculoskeletal: See HPI Skin: No symptoms reported Hematologic/Lymphatic: No symptoms reported Neurological/Psychological: See HPI, Dementia Physical Exam - Vital signs Vitals: Temp Pulse Resp BP Pulse Ox 97.7 F 81 16 124/61 100 10/26/18 10:45 10/26/18 10:45 10/26/18 10:45 10/26/18 10:45 10/26/18 10:45 Interpretation: Normal - Notes Notes: PHYSICAL EXAMINATION: GENERAL: Well-appearing, well-nourished and in no acute distress. HEAD: Atraumatic, normocephalic. EYES: Pupils equal round and reactive to light, extraocular movements intact, sclera anicteric, conjunctiva are normal. ENT: Nares patent, oropharynx clear without exudates. Moist mucous membranes. NECK: Normal range of motion, supple without lymphadenopathy LUNGS: Breath sounds clear to auscultation bilaterally and equal. No wheezes rales or rhonchi. HEART: Regular rate and rhythm without murmurs ABDOMEN: Soft, nontender, nondistended abdomen. No guarding, no rebound. No masses appreciated. Musculoskeletal: Normal range of motion, no pitting or edema. No cyanosis. left elbow with abduction and flexion. no pain with supination, pronation, extension. negative , Creative [employer] Music Therapist + 2 BUE equally. APROM in shoulder. DTR +2 in BUE equally. Noted crepitus with APROM in elbow. negative drop arm, neer sign, george test, slightly positive impingement sign all on right. Full motor and sensory function in [place]. No vascular compromise. No noted swelling, abrasions, ecchymosis, lacerations, scars of recent trauma. No erythema or induration noted to area. Intact median, ulnar and radial nerves bilaterally and equally. muscle strength 5/5 in BUE NEUROLOGICAL: Cranial nerves grossly intact. Normal speech, normal gait. Normal sensory, motor exams. PERRLA, EOMI. Full motor and sensory function thro ughout. Creative Arts Music Therapist + 2 equal bilaterally in BUE. Tongue midline. No pronator drift. No ataxia. Neck with APROM. Raises eyebrows. Strength is 5 out of 5 in bilateral upper and lower extremities equally.Speaks in full sentences. No weakness on one side. Romberg gait steady able to walk straight line. PSYCH: Normal mood, normal affect. SKIN: Warm, Dry, normal turgor, no rashes or lesions noted. Course - Re-evaluation Re-evalutation: 10/26/18 12:09 Afebrile vital stable no distress. CT head CT cervical spine unremarkable for any acute findings per radiology. CBC negative for leukocytosis or anemia, CMP negative for hepatic or renal dysfunction, no electrolyte disturbances. Left elbow x-ray consistent with old avulsion fracture to left medial epicondyles noted soft tissue swelling. 1 g Rocephin given IVP.advised patient and relative to follow-up with customer retention specialist Dr. August, since he is already drained his bursitis. Continue taking Cipro as directed. Follow-up with primary care provider and customer retention specialist. 1355: Nurse advised provider that patient was found sitting on the floor when they came in the room. This provider went into the room to assess patient. Patient tried to get up to use the bathroom, stumbled and fell back on his buttocks, denies hitting his head. No focal neurological deficits on examination, awake alert and intact. Patient adamantly refused hitting his head. Normal clinical examination. Awaiting for dialysis social worker to come to bedside. After performing a Medical Screening Examination, I estimate there is LOW risk for ACUTE GLAUCOMA, TEMPORAL ARTERITIS, MENINGITIS, INCRANIAL HEMORRHAGE, or ISCHEMIC STROKE thus I consider the discharge disposition reasonable. I have reevaluated this patient multiple times and no significant life threatening changes are noted. The patient and I have discussed the diagnosis and risks, and we agree with discharging home with close follow-up with the understanding that symptoms and presentations can change. We also discussed returning to the Emergency Department immediately if new or worsening symptoms occur. We have discussed the symptoms which are most concerning (e.g., changing or worsening symptoms, new numbness or weakness, vomiting, fever) that necessitate immediate return. - Vital Signs Vital signs: Temp Pulse Resp BP Pulse Ox 98.0 F 69 16 117/64 100 10/26/18 16:42 10/26/18 16:42 10/26/18 16:42 10/26/18 16:42 10/26/18 16:42 - Laboratory Result Diagrams: 10/26/18 11:24 10/26/18 11:24 Laboratory results interpreted by me: 10/26/18 10/26/18 11:24 11:24 RBC 4.18 L MCV 100 H MCH 34.2 H Lymph % (Auto) 6.3 L Seg Neutrophils % 85.1 H Glucose 153 H Discharge - Discharge Clinical Impression: Infection of left olecranon bursa Closed head injury Qualifiers: Encounter type: initial encounter Qualified Code(s): S09.90XA - Unspecified injury of head, initial encounter Condition: Stable Disposition: HOME, SELF-CARE Instructions: Dementia ([facility]), Elbow Effusion ([facility]), Head Injury Precautions ([facility]) Additional Instructions: Follow-up with customer retention specialist and primary care provider within the next 3 days Return immediately for any new or worsening symptoms. Follow up with primary care provider, call tomorrow to make followup appointment. Referrals: DEVAN AUGUST DO [ACTIVE STAFF] - Follow up as needed DAVID ADLER MD [COMMUNITY BASED STAFF] - Follow up as needed
[2018-10-26 11:37] LABS: ABSOLUTE BASOPHILS # (AUTO) 0.1 10^3/uL (0.0-0.2); ABSOLUTE EOSINOPHILS # (AUTO) 0.1 10^3/uL (0.0-0.6); ABSOLUTE LYMPHOCYTES (AUTO) 0.6 10^3/uL (0.5-4.7); ABSOLUTE MONOCYTES (AUTO) 0.6 10^3/uL (0.1-1.4); BASOPHILS % (AUTO) 0.9 % (0-2); EOSINOPHILS % (AUTO) 1.4 % (0-6); HEMATOCRIT 41.8 % (37.9-51.0); HEMOGLOBIN 14.3 g/dL (13.5-17.0); LYMPHOCYTES % (AUTO) 6.3 % (13-45); MEAN CORPUSCULAR HEMOGLOBIN 34.2 pg (27.0-33.4); MEAN CORPUSCULAR HGB CONC 34.2 g/dL (32.0-36.0); MEAN CORPUSCULAR VOLUME 100 fl (80-97); MONOCYTES % (AUTO) 6.3 % (3-13); PLATELET COUNT 159 10^3/uL (150-450); RED BLOOD COUNT 4.18 10^6/uL (4.35-5.55); SEGMENTED NEUTROPHILS % (AUTO) 85.1 % (42-78); TOTAL CELLS COUNTED % (AUTO) 100 %; WHITE BLOOD COUNT 9.5 10^3/uL (4.0-10.5)
[2018-10-26 11:59] LABS: ALBUMIN 4.3 g/dL (3.5-5.0); ALKALINE PHOSPHATASE 113 U/L (38-126); ANION GAP 11 (5-19); ASPARTATE AMINO TRANSFERASE 42 U/L (17-59); BILIRUBIN,DIRECT 0.2 mg/dL (0.0-0.4); BILIRUBIN,TOTAL 0.8 mg/dL (0.2-1.3); BLOOD UREA NITROGEN 19 mg/dL (7-20); CALCIUM 9.5 mg/dL (8.4-10.2); CARBON DIOXIDE 28 mmol/L (22-30); CHLORIDE 100 mmol/L (98-107); GLUCOSE 153 mg/dL (75-110); POTASSIUM 4.3 mmol/L (3.6-5.0); TOTAL PROTEIN 6.9 g/dL (6.3-8.2)
--- NOTE | 2018-10-26 12:30 | RADIOLOGY REPORT (SQ) ---
EXAM DESCRIPTION: CT HEAD WITHOUT COMPLETED DATE/TIME: 10/26/2018 12:01 pm REASON FOR STUDY: fall COMPARISON: CT brain 10/11/2018 TECHNIQUE: Axial images acquired through the brain without intravenous contrast. Images reviewed wi th bone, brain and subdural windows. Additional sagittal and coronal reconstructions were generated. Images stored on PACS. All CT scanners at this facility use dose modulation, iterative reconstruction, and/or weight based d osing when appropriate to reduce radiation dose to as low as reasonably achievable (ALARA). [facility]: Dose Right [facility]: CareDose [facility]: Dose Right [facility]: Teradose 4D [facility]: Smart [employer] RADIATION DOSE: CT Rad equipment meets quality standard of care and radiation dose reduction techniq ues were employed. CTDIvol: 53.2 mGy. DLP: 991 mGy-cm. mGy. LIMITATIONS: None. FINDINGS: VENTRICLES: Normal size and contour. CEREBRUM: No masses. No hemorrhage. No midline shift. No evidence for acute infarction. Normal gra y/white matter differentiation. No areas of low density in the white matter. CEREBELLUM: No masses. No hemorrhage. No alteration of density. No evidence for acute infarction. EXTRAAXIAL SPACES: No fluid collections. No masses. ORBITS AND GLOBE: No intra- or extraconal masses. Normal contour of globe without masses. CALVARIUM: No fracture. PARANASAL SINUSES: No fluid or mucosal thickening. SOFT TISSUES: No mass or hematoma. OTHER: No other significant finding. IMPRESSION: NORMAL BRAIN CT WITHOUT CONTRAST. EVIDENCE OF ACUTE STROKE: NO. COMMENT: Quality ID # 436: Final reports with documentation of one or more dose reduction techniques (e.g., Automated exposure control, adjustment of the mA and/or kV according to patient size, use of iterative reconstruction technique) TECHNICAL DOCUMENTATION: JOB ID: [id number] [employer]- All Rights Reserved Reading location - IP/workstation name: [email or web address]
[2018-10-26] MEDS ORDERED: CEFTRIAXONE INJ 1000 MG VIAL IM ONE (12:36)
--- NOTE | 2018-10-26 12:36 | RADIOLOGY REPORT (SQ) ---
EXAM DESCRIPTION: CT CERVICAL SPINE WITHOUT COMPLETED DATE/TIME: 10/26/2018 12:01 pm REASON FOR STUDY: fall COMPARISON: CT brain same date TECHNIQUE: Axial images acquired through the cervical spine without intravenous contrast. Images re viewed with lung, soft tissue and bone windows. Reconstructed coronal and sagittal MPR images review ed. Images stored on PACS. All CT scanners at this facility use dose modulation, iterative reconstruction, and/or weight based d osing when appropriate to reduce radiation dose to as low as reasonably achievable (ALARA). [facility]: Dose Right [facility]: CareDose [facility]: Dose Right [facility]: Teradose 4D [facility]: Smart [employer] RADIATION DOSE: CT Rad equipment meets quality standard of care and radiation dose reduction techniq ues were employed. CTDIvol: 19.0 mGy. DLP: 443 mGy-cm. mGy. LIMITATIONS: None. FINDINGS: ALIGNMENT: Anatomic. MINERALIZATION: Normal. VERTEBRAL BODIES: No fractures or dislocation. DISCS: C1-C2: No significant spinal stenosis or exit foraminal stenosis. C2-C3: No significant spinal stenosis or exit foraminal stenosis. Moderate left C2-3 facet hypertrop hy C3-C4: Mild diffuse posterior disc bulge and bony spurring is present without significant central or right foraminal narrowing. Moderate left foraminal stenosis from asymmetric facet hypertrophy. C4-C5: Mild diffuse posterior disc bulge present without central or right foraminal narrowing. There is asymmetric left bulky facet arthropathy causing moderate left foraminal narrowing C5-C6: There is ossification of posterior longitudinal ligament along the dorsal aspect of the C5 marizol tebral body. At C5-6, broad diffuse posterior disc bulging is present without central or foraminal n arrowing C6-C7: There is ossification of the posterior longitudinal ligament along the dorsal aspect of the C6 vertebral body. Broad diffuse posterior disc bulge and bony spurring is present causing borderline central canal narrowing. There moderate to high-grade bilateral foraminal narrowing from facet and u ncovertebral hypertrophy. C7-T1: No significant spinal stenosis or exit foraminal stenosis. FACETS, LATERAL MASSES, POSTERIOR ELEMENTS: No fractures. No dislocation. No acute findings. HARDWARE: None in the spine. VISUALIZED RIBS: No fractures. LUNG APICES AND SOFT TISSUES: No significant or acute findings. OTHER: Calcified bilateral carotid bifurcations. IMPRESSION: No acute fracture or malalignment. Multilevel degenerative changes as above. TECHNICAL DOCUMENTATION: JOB ID: [id number] Quality ID # [id number]: Final reports with documentation of one or more dose reduction techniques (e.g., Au tomated exposure control, adjustment of the mA and/or kV according to patient size, use of iterative reconstruction technique) 2010 [employer]- All Rights Reserved Reading location - IP/workstation name: [email or web address]
--- NOTE | 2018-10-26 12:38 | RADIOLOGY REPORT (SQ) ---
EXAM DESCRIPTION: ELBOW LEFT OVER 2 VIEWS COMPLETED DATE/TIME: 10/26/2018 12:21 pm REASON FOR STUDY: fall, swelling, hx infection, warm, errythema COMPARISON: 10/11/2018. NUMBER OF VIEWS: Four views. TECHNIQUE: AP, lateral, and both oblique radiographic images acquired of the left elbow. LIMITATIONS: None. FINDINGS: MINERALIZATION: Normal. BONES: There is again evidence of a triangular avulsion fracture adjacent left medial epicondyles whi ch could represent old posttraumatic change. Otherwise, no acute fracture or bony abnormality seen. Mild soft tissue swelling. No elbow effusion. JOINT: No effusion. SOFT TISSUES: No soft tissue swelling. No foreign body. OTHER: No other significant finding. IMPRESSION: Findings consistent with old avulsion fracture left medial epicondyles. Mild soft tissu e swelling. . TECHNICAL DOCUMENTATION: JOB ID: [id number] SC-69 2010 [employer]- All Rights Reserved Reading location - IP/workstation name: [email or web address]
[2018-10-26] MEDS ORDERED: CEFTRIAXONE 1 GM/D5W RTU 1 GM/50 ML RTUPB IV ONE (12:46)
[2018-10-26 16:42] VITALS: BP 117/64
--- NOTE | 2018-10-26 22:11 | EKG REPORT ---
SEVERITY:- ABNORMAL ECG - SINUS RHYTHM NONSPECIFIC INTRAVENTRICULAR CONDUCTION DELAY LEFT VENTRICULAR HYPERTROPHY : Confirmed by: Maxx Grider MD 26-Oct-2018 22:09:40
--- NOTE | 2018-10-26 22:11 | EKG REPORT ---
SEVERITY:- ABNORMAL ECG - SINUS RHYTHM NONSPECIFIC INTRAVENTRICULAR CONDUCTION DELAY PROBABLE LEFT VENTRICULAR HYPERTROPHY : Confirmed by: Maxx Grider MD 26-Oct-2018 22:09:52
== END 2018-10-26 16:42 | disposition home or self-care (01) ==
LOC: ER 10:38
DX: S09.90XA Unspecified injury of head, initial encounter (principal); W19.XXXA Unspecified fall, initial encounter; M71.122 Other infective bursitis, left elbow; Z98.890 Other specified postprocedural states; L03.114 Cellulitis of left upper limb; F03.90 Unspecified dementia, unspecified severity, without behavioral disturbance, psychotic disturbance, mood disturbance, and anxiety
CPT/HCPCS: 93005; 36415; 87040; 85025; 80053; 84484; 73080; 70450; 72125; 93010; J0696; 96365; 99284

== ENCOUNTER 2019-03-02 11:17 | Emergency (ER) | payer MEDICARE, OTHER ==
--- NOTE | 2019-03-02 12:13 | ER Document Report ---
ED Medical Screen (RME) - General Chief Complaint: Fall Stated Complaint: FALL - HEAD INJURY Time Seen by Provider: 03/02/19 11:58 Primary Care Provider: MARGIE TONY PA-C [Primary Care Provider] - Follow up as needed Notes: Patient is a 73-year-old male with a history of orthostatic hypotension, PSP, hypertension who presents to the emergency department with a chief complaint of head injury. reports that there was an unwitnessed fall as the patient was attempting to get into the shower. Patient does have redness to his right eye. She reports that as soon as she heard the fall she came into the room and noticed that the patient was "out of it" for about 1 minute. She reports he was making some gurgling type sounds. She reports that he does fall frequently due to the PSP but that the gurgling type symptoms were different. Patient denies visual changes. Denies use of blood thinners. Significant other states that the patient is acting his normal self at this time. TRAVEL OUTSIDE OF THE [place] IN LAST 30 DAYS: No - Related Data Allergies/Adverse Reactions: No Known Allergies Allergy (Verified 03/02/19 11:56) Home Medications: Levodopa, Carbadopa, Levothyroxine, Atorvistatin, lexapro, exelon, mitadrine Past Medical History - Past Medical History Cardiac Medical History: Reports: Hx Hypercholesterolemia Denies: Hx Hypertension - Hypotension Renal/ Medical History: Denies: Hx Peritoneal Dialysis Psychiatric Medical History: Reports: Hx Dementia Physical Exam - Vital signs Vitals: Temp Pulse Resp BP Pulse Ox 98.2 F 78 16 107/53 L 100 03/02/19 11:40 03/02/19 11:40 03/02/19 11:40 03/02/19 11:40 03/02/19 11:40 Course - Re-evaluation Re-evalutation: 03/02/19 12:12 Patient's right pupil is slightly larger than the left. states that this is his normal. It does appear that the patient has a subconjunctival hemorrhage in the right eye. Will obtain a CT of the head. I have greeted and performed a rapid initial assessment of this patient. A comprehensive ED assessment and evaluation of the patient, analysis of test results and completion of the medical decision making process will be conducted by additional ED providers. - Vital Signs Vital signs: Temp Pulse Resp BP Pulse Ox 98.2 F 78 16 107/53 L 100 03/02/19 11:40 03/02/19 11:40 03/02/19 11:40 03/02/19 11:40 03/02/19 11:40 Doctor's Discharge - Discharge Referrals: MARGIE TONY PA-C [Primary Care Provider] - Follow up as needed
--- NOTE | 2019-03-02 13:15 | RADIOLOGY REPORT (SQ) ---
EXAM DESCRIPTION: CT HEAD WITHOUT COMPLETED DATE/TIME: 03/02/2019 12:59 pm REASON FOR STUDY: fall, head injury, confusion after COMPARISON: CT brain 10/26/2018, 10/11/2018, 09/19/2018 TECHNIQUE: Axial images acquired through the brain without intravenous contrast. Images reviewed wi th bone, brain and subdural windows. Images stored on PACS. All CT scanners at this facility use dose modulation, iterative reconstruction, and/or weight based d osing when appropriate to reduce radiation dose to as low as reasonably achievable (ALARA). [facility]: Dose Right [facility]: CareDose [facility]: Dose Right [facility]: Teradose 4D [facility]: Smart [employer] RADIATION DOSE: CT Rad equipment meets quality standard of care and radiation dose reduction techniq ues were employed. CTDIvol: 53.2 mGy. DLP: 991 mGy-cm. mGy. LIMITATIONS: None. FINDINGS: VENTRICLES: Normal size and contour. CEREBRUM: No masses. No hemorrhage. No midline shift. No evidence for acute infarction. Normal gra y/white matter differentiation. No areas of low density in the white matter. CEREBELLUM: No masses. No hemorrhage. No alteration of density. No evidence for acute infarction. EXTRAAXIAL SPACES: No fluid collections. No masses. ORBITS AND GLOBE: No intra- or extraconal masses. Normal contour of globe without masses. CALVARIUM: No fracture. PARANASAL SINUSES: No fluid or mucosal thickening. SOFT TISSUES: No mass or hematoma. OTHER: No other significant finding. IMPRESSION: NORMAL BRAIN CT WITHOUT CONTRAST. EVIDENCE OF ACUTE STROKE: NO. COMMENT: Quality ID # [id number]: Final reports with documentation of one or more dose reduction techniques (e.g., Automated exposure control, adjustment of the mA and/or kV according to patient size, use of iterative reconstruction technique) TECHNICAL DOCUMENTATION: JOB ID: [id number] [employer]- All Rights Reserved Reading location - IP/workstation name: [email or web address]
--- NOTE | 2019-03-02 13:22 | RADIOLOGY REPORT (SQ) ---
EXAM DESCRIPTION: CT CERVICAL SPINE WITHOUT COMPLETED DATE/TIME: 03/02/2019 12:59 pm REASON FOR STUDY: head injury COMPARISON: CT cervical spine 10/26/2018 TECHNIQUE: Axial images acquired through the cervical spine without intravenous contrast. Images re viewed with lung, soft tissue and bone windows. Reconstructed coronal and sagittal MPR images review ed. Images stored on PACS. All CT scanners at this facility use dose modulation, iterative reconstruction, and/or weight based d osing when appropriate to reduce radiation dose to as low as reasonably achievable (ALARA). [facility]: Dose Right [facility]: CareDose [facility]: Dose Right [facility]: Teradose 4D [facility]: [employer] RADIATION DOSE: CT Rad equipment meets quality standard of care and radiation dose reduction techniq ues were employed. CTDIvol: 19.4 mGy. DLP: 426 mGy-cm. mGy. LIMITATIONS: None. FINDINGS: ALIGNMENT: Straightening of cervical curvature likely due to muscle spasm MINERALIZATION: Normal. VERTEBRAL BODIES: No fractures or dislocation. DISCS: Craniocervical junction, C1-2, C2-3 are unremarkable aside from left-sided C2-3 facet hypertro phy without foraminal narrowing. At C3-4, high-grade left foraminal narrowing is present from facet and uncovertebral hypertrophy. Mi ld right foraminal narrowing. No central stenosis. At C4-5, high-grade left foraminal narrowing results from asymmetric bulky left facet and uncovertebr al hypertrophy. No central stenosis or right foraminal narrowing. At C5-6, mild posterior disc bulging is present without central or foraminal stenosis. 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 This finding along with broad diffuse poste rior disc bulge and bony spurring causes mild central canal narrowing at C6-7. There is high-grade b ilateral C6-7 foraminal narrowing. C7-T1 is unremarkable. FACETS, LATERAL MASSES, POSTERIOR ELEMENTS: No acute fracture or malalignment HARDWARE: None in the spine. VISUALIZED RIBS: No fractures. LUNG APICES AND SOFT TISSUES: No significant or acute findings. OTHER: No other significant finding. IMPRESSION: Multilevel significant foraminal narrowing. No acute fracture or malalignment. TECHNICAL DOCUMENTATION: JOB ID: [id number] Quality ID # [id number]: Final reports with documentation of one or more dose reduction techniques (e.g., Au tomated exposure control, adjustment of the mA and/or kV according to patient size, use of iterative reconstruction technique) 2010 [employer]- All Rights Reserved Reading location - IP/workstation name: [email or web address]
--- NOTE | 2019-03-02 13:52 | ER Document Report ---
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 Patient is moving all extremities well he denies any LOC. He was attempting to get into the shower when he fell. He sustained right lateral subconjunctival hemorrhage but no other skin tears or hematomas. He has a history of hypertension and falls and supranuclear palsy he is alert awake oriented x4 very pleasant and conversive TRAVEL OUTSIDE OF THE [place] IN LAST 30 DAYS: No - HPI Onset: Just prior to arrival Onset/Duration: Sudden Quality of pain: No pain Severity: Mild Pain Level: 1 Associated symptoms: Other - Right eye redness Exacerbated by: Denies Relieved by: Denies Similar symptoms previously: Yes - Orthostatic hypotension history and supranuclear palsy history Recently seen / treated by doctor: No - Related Data Allergies/Adverse Reactions: No Known Allergies Allergy (Verified 03/02/19 11:56) Home Medications: Levodopa, Carbadopa, Levothyroxine, Atorvistatin, lexapro, exelon, mitadrine Past Medical History - General Information source: Patient, Relative - Social History Smoking Status: Never Smoker Cigarette use (# per day): No Chew tobacco use (# tins/day): No Smoking Education Provided: No Frequency of alcohol use: None Drug Abuse: None Lives with: Family Family History: Reviewed & Not Pertinent Patient has suicidal ideation: No Patient has homicidal ideation: No - Past Medical History Cardiac Medical History: Reports: Hx Hypercholesterolemia Denies: Hx Hypertension - Hypotension Renal/ Medical History: Denies: Hx Peritoneal Dialysis Psychiatric Medical History: Reports: Hx Dementia Review of Systems - Review of Systems Constitutional: No symptoms reported EENT: Other - Right subconjunctival hemorrhage after fall laterally only pupils within normal limits vision within normal limits Cardiovascular: No symptoms reported Respiratory: No symptoms reported Gastrointestinal: No symptoms reported Genitourinary: No symptoms reported Male Genitourinary: No symptoms reported Musculoskeletal: No symptoms reported Skin: No symptoms reported Physical Exam - Vital signs Vitals: Temp Pulse Resp BP Pulse Ox 98.2 F 78 16 107/53 L 100 03/02/19 11:40 03/02/19 11:40 03/02/19 11:40 03/02/19 11:40 03/02/19 11:40 Interpretation: Normal - General General appearance: Appears well, Other - Very pleasant conversive oriented elderly appearing for given age in a wheelchair with no obvious head trauma or neck trauma. C-collar was removed after CTs were done and cleared. Patient has right lateral subconjunctival hemorrhage vision within normal limits - HEENT Head: Normocephalic Eyes: Other - No periorbital edema or abrasion Conjunctiva: Other - Right lateral subconjunctival hemorrhage Extraocular movements intact: Yes Eyelashes: Normal Pupils: PERRL Sinus: Normal Nasal: Normal Mouth/Lips: Normal Neck: Normal, Other - C-collar was was moved off person around [address] T cleared neck - Respiratory Respiratory status: No respiratory distress Chest status: Nontender Breath sounds: Normal Chest palpation: Normal - Cardiovascular Rhythm: Regular Heart sounds: Normal auscultation Murmur: No Friction rub: No Matthew's crunch: No - Abdominal Inspection: Normal Distension: No distension - Back Back: Normal - Extremities General upper extremity: Normal inspection General lower extremity: Normal inspection - Neurological Neuro grossly intact: Yes Cognition: Normal Orientation: AAOx4 Silvestre Coma Scale Eye Opening: Spontaneous Silvestre Coma Scale Verbal: Oriented Silvestre Coma Scale Motor: Obeys Commands [place] Coma Scale Total: 15 Speech: Normal Cranial nerves: Normal Cerebellar coordination: Normal - Patient has history of supranuclear palsy but CT of the head was negative and I discussed this with patient as well as foraminal narrowing with patient and family/caregiver - Psychological Associated symptoms: Normal affect - Skin Skin Temperature: Warm Skin Moisture: Dry Course - Vital Signs Vital signs: Temp Pulse Resp BP Pulse Ox 98.2 F 78 16 107/53 L 100 03/02/19 11:40 03/02/19 11:40 03/02/19 11:40 03/02/19 11:40 03/02/19 11:40 - Diagnostic Test Radiology reviewed: Reports reviewed - CT of head was negative and CT of neck revealed foraminal narrowing but no fracture or malalignment Critical Care Note - Critical Care Note Total time excluding time spent on procedures (mins): 60 Discharge - Discharge Clinical Impression: Fall, Subconjunctival hemorrhage of right eye Condition: Good Disposition: HOME, SELF-CARE Additional Instructions: Follow-up with management aide if vision or eye movements have increased or worsening symptoms. Follow-up with personal doctor this week as needed moist warm compresses to right eye may help some conjunctival hemorrhage however expect at least 1 to 2 weeks of symptoms persisting. Return to ER if symptoms worsen or headache occurs or sensorium changes. Referrals: MARGIE TONY PA-C [Primary Care Provider] - Follow up as needed
[2019-03-02 14:30] VITALS: BP 104/58
== END 2019-03-02 15:04 | disposition home or self-care (01) ==
LOC: ER 11:17
DX: H11.31 Conjunctival hemorrhage, right eye (principal); W19.XXXA Unspecified fall, initial encounter; Y93.89 Activity, other specified; G23.1 Progressive supranuclear ophthalmoplegia [Steele-Richardson-Olszewski]; E78.00 Pure hypercholesterolemia, unspecified; Z79.899 Other long term (current) drug therapy
CPT/HCPCS: 99285; 70450; 72125; L0120